=== PATIENT | male | born 1960 | race Caucasian/White ===

== ENCOUNTER → 2018-12-04 | Outpatient (CLI) | payer SELFPAY ==
--- NOTE | 2018-12-04 12:27 | Diagnostic Imaging Report ---
PROCEDURE: US Gallbladder. TECHNIQUE: Multiple real-time grayscale images were obtained over the right upper quadrant in various projections. INDICATION: Epigastric pain. FINDINGS: The liver is enlarged at 21 cm. There is diffuse increased echogenicity throughout the liver consistent with hepatic steatosis. No discrete liver mass is identified. Gallbladder is without stones or sludge. No wall thickening or biliary ductal dilatation is seen. The portal vein is patent and shows normal direction of flow. Pancreas is obscured by bowel gas. Right kidney is unremarkable. There is no ascites. IMPRESSION: 1. Hepatomegaly and hepatic steatosis. 2. No evidence of cholelithiasis or acute cholecystitis. Dictated by: Dictated on workstation # [id number]
== END ==
LOC: RAD 09:15 → EDUNIT# 09:30
PROVIDERS: ATTEND Surgery
DX: K76.0 Fatty (change of) liver, not elsewhere classified (principal)
CPT/HCPCS: 76705

== ENCOUNTER 2018-12-11 05:37 | Outpatient (CLI) | payer SELFPAY ==
[~2018-12-11] VITALS: Ht 182 cm; Wt 90.9 kg
== END 2018-12-11 14:53 | disposition home or self-care (01) ==
LOC: PREOP 05:37
PROVIDERS: ATTEND Surgery
DX: Z01.818 Encounter for other preprocedural examination (principal)

== ENCOUNTER 2018-12-18 07:46 | Day surgery (SDC) | payer SELFPAY ==
[~2018-12-18] VITALS: Ht 182 cm; Wt 90.9 kg
[2018-12-18] MEDS ORDERED: LACTATED RINGERS 1,000 ML IV STA (07:56)
[2018-12-18] MEDS ORDERED: LACTATED RINGERS 1,000 ML IV ONE (07:58)
[2018-12-18 08:00] VITALS: BP 150/93
[2018-12-18] MEDS ORDERED: MIDAZOLAM 5 MG/5 ML (VERSED) VIAL IV PRN (08:00)
[2018-12-18] MEDS ORDERED: fentaNYL INJECTION 100 MCG/2 ML AMP IVP ONE (08:00)
[2018-12-18] MEDS ORDERED: HURRICAINE EXT TUBE (BENZOCAINE) XX PRN (08:00)
--- NOTE | 2018-12-18 08:10 | Progress Note-Pre Operative ---
Pre-Operative Progress Note H&P Reviewed The H&P was reviewed, patient examined and no changes noted. Time Seen by Provider: 08:06 Date H&P Reviewed: Dec 18, 2018 Time H&P Reviewed: 08:07 Pre-Operative Diagnosis: Epigastric pain DAT BRENNER DO Dec 18, 2018 08:10 POS
[2018-12-18] MEDS ORDERED: proPOfol 200 MG/20 ML (DIPRIVAN) VIAL IV ONE (09:04)
[2018-12-18] MEDS ORDERED: MIDAZOLAM 2 MG/2 ML (VERSED) VIAL ONE (09:04)
[2018-12-18] MEDS ORDERED: HURRICAINE EXT TUBE (BENZOCAINE) ONE (09:13)
[2018-12-18 09:30] VITALS: BP 136/84
--- NOTE | 2018-12-18 09:32 | Progress Note-Post Operative ---
Post-Operative Progess Note Surgeon (s)/General Repairer (s) Surgeon DAT BRENNER DO General Repairer: none Pre-Operative Diagnosis Epigastric pain Post-Operative Diagnosis Gastritis Duodenitis Esophagitis Hiatal hernia Gastric Ulcer Procedure & Operative Findings Date of Procedure 12/18/18 Procedure Performed/Findings EGD with bx Anesthesia Type IV sedation by PLACING JUDGE Estimated Blood Loss Estimated blood loss (mL): scant Specimens/Packing Specimens Removed antral bx duodenal bx Body of stomach bx GE jxn bx Bx of ulcer DAT BRENNER DO Dec 18, 2018 09:32 POS
[2018-12-18] MEDS ORDERED: NF-ESOM40C PO (09:34)
[2018-12-18 09:35] VITALS: BP 129/82
--- NOTE | 2018-12-18 09:36 | Endoscopy Discharge Instruct ---
Endo Procedure/Findings Findings 1.: Gastric Ulcer, Gastritis 2.: Hiatal Hernia 3.: Other Findings (duodenitis, esophagitis) Discharge Instructions - Activity: You might feel a little sleepy until tomorrow. This is due to the medicine you received to relax you. Until tomorrow, you should: NOT drive a car, operate machinery or power tools. NOT drink any alcoholic beverages. NOT make any important decisions or sign importortant papers. Do not return to work until tomorrow, unless otherwise instructed. Resume prev ious activities tomorrow. Diet: Start by taking liquids. If you tolerate liquids, advance to solid food. make an appointment for one week 1.: EGD in 6-8 weeks Notify Physician - If you experience excessive bleeding, unusual abdominal pain, fever, or chest pain, contact your doctor immediately. DAT BRENNER DO Dec 18, 2018 09:36 POS
[2018-12-18 09:40] VITALS: BP 131/85
[2018-12-18 09:45] VITALS: BP 131/85
[2018-12-18 10:15] VITALS: BP 132/94
--- NOTE | 2018-12-18 13:09 | Anesthesia-General Post-Op ---
MAC Patient Condition Mental Status/LOC: Same as Preop Cardiovascular: Satisfactory Nausea/Vomiting: Absent Respiratory: Satisfactory Pain: Controlled Complications: Absent Post Op Complications Complications None Follow Up Care/Instructions Patient Instructions None needed. Anesthesiology Discharge Order Discharge Order Patient is doing well, no complaints, stable vital signs, no apparent adverse anesthesia problems. No complications reported per nursing. NEREYDA SHELLEY CRNA Dec 18, 2018 13:09 POS
--- NOTE | 2018-12-18 18:04 | OPERATIVE REPORT ---
DATE OF SERVICE: PREOPERATIVE DIAGNOSIS: Epigastric pain. POSTOPERATIVE DIAGNOSES: 1. Gastritis questionable watermelon belly. 2. Gastric ulcer. 3. Esophagitis. 4. Duodenitis. 5. Small hiatal hernia. PROCEDURE: EGD with biopsy. SURGEON: Rohit Camacho DO. WOOD CARVER: None. ANESTHESIA: IV sedation by PHONE CIRCUIT OPERATOR. SPECIMEN: One biopsy from the duodenum, one biopsy from the antrum, one biopsy from body of stomach, one biopsy from the GE junction and a biopsy of an ulcer in the body of the stomach just outside the antrum. BLOOD LOSS: Scant. FLUIDS: Per anesthesia. POSTOPERATIVE CONDITION: Stable. INDICATION FOR PROCEDURE: The patient is a 58-year-old male, who is having some epigastric pain and needed a workup. FINDINGS: The patient had some duodenitis, gastritis, esophagitis, small gastric ulcer and a small hiatal hernia. PROCEDURE NOTE: After informed consent was obtained, the patient was brought to the endoscopy suite and placed in the bed in left lateral decubitus position. He was administered IV sedation by the PHONE CIRCUIT OPERATOR, who then monitored his vital signs the entire time, heart rate, blood pressure and pulse ox. Inserted the scope down in through the mouth, down the esophagus into the stomach. Upon entry, noted some gastritis looked like watermelon belly and then pushed into the antrum, looked like what we saw some duodenitis. There is some redness elected to do a biopsy here, did a biopsy in the duodenum and then pulled back and did a biopsy of the antrum. Retroflexed the scope, saw a small hiatal hernia and did a biopsy of the body of stomach, pulled the scope up into the esophagus, looked like some mild creeping up of the Z line maybe some mild esophagitis, took a biopsy of the GE junction, pushed back and the suction out the air and noted what looked like a small ulcer in the body of stomach just outside the antrum, did a biopsy of this ulcer. Suctioned the air out of stomach and then pulled the scope up the esophagus and out the mouth. The patient tolerated the procedure, recovered in endoscopy suite. Job ID: [id number] DocumentID: [id number] Dictated Date: 12/18/2018 09:31:43 Electric Motor Assembler And Tester Date: 12/18/2018 15:24:07 Dictated By: ROHIT CAMACHO DO [facility]
--- OUTSIDE RECORDS SUMMARY | 2019-01-09 21:10 | XMS REPORT | Continuity of Care Document ---
Author Organization Unknown POS Address Unknown SP Phone Unavailable SP Allergies Active Description Code Type Severity POS Reaction Onset Reported/Identified POS to Patient Clinical Status POS Yes Penicillins [id number] Drug Aller gy SP HIVES/BREATHING 12/11/2018 SP SP Medications There is no data. Problems Date Dx Coded Attending Type Code POS Diagnosed By POS 12/06/2018 DAT BRENNER DO Ot K76.0 SP (CHANGE OF) LIVER, NOT ELSEWHERE C SP 12/11/2018 DAT BRENNER DO B Ot Z01.8 18 SP FOR OTHER PREPROCEDURAL EXAMIN SP 12/18/2018 DAT BRENNER DO Ot E78.5 SP UNSPECIFIED SP 12/18/2018 DAT BRENNER DO B Ot I10 SP (PRIMARY) HYPERTENSION SP 12/18/2018 DAT BRENNER DO B Ot K21.0 SPESOPHAGEAL REFLUX DISEASE WITH ES SP 12/18/2018 DAT BRENNER DO B Ot K25.9 SP ULCER, UNSP ACUTE OR CHRONIC, SP 12/18/2018 DAT BRENNER DO B Ot K29.7 0 SP UNSPECIFIED, WITHOUT BLEEDING SP 12/18/2018 DAT BRENNER DO B Ot K29.8 0 SP WITHOUT BLEEDING SP 12/18/2018 DAT BRENNER DO B Ot K31.8 9 SP DISEASES OF STOMACH AND DUODENUM SP 12/18/2018 DAT BRENNER DO B Ot K44.9 SP HERNIA WITHOUT OBSTRUCTION SP 12/18/2018 DAT BRENNER DO B Ot Z80.0 SP HISTORY OF MALIGNANT NEOPLASM OF SP 12/18/2018 DAT BRENNER DO B Ot Z80.4 2 SP HISTORY OF MALIGNANT NEOPLASM OF SP 12/18/2018 DAT BRENNER DO B Ot Z88.0 SP STATUS TO PENICILLIN SP 12/19/2018 DAT BRENNER DO B Ot Z01.8 18 SP FOR OTHER PREPROCEDURAL EXAMIN SP Procedures There is no data. Results There is no data. Encounters ACCT No. Visit Date/Time Discharge Status POS Pt. Type Provider Facility Loc./Un it POS Complaint POS [id number] 12/21/2018 11:49:00 23:59:59 SP [facility] Outpatient DAT BRENNER DO [facility] CARD EPIGASTRIC PAIN SP [id number] 12/18/2018 07:46:00 10:15:00 SP DIS Outpatient DAT BRENNER DO B [facility] ENDO EPIGASTRIC PAIN/FAMILY HX ES OPHAGEAL CA SP [id number] 12/11/2018 05:37:00 14:53:00 SP DIS Outpatient DAT BRENNER DO [facility] PREOP EGD SP [id number] 12/04/2018 09:15:00 23:59:59 SP [facility] Outpatient DAT BRENNER DO B [facility] RAD EPIGASTRIC PAIN SP
== END 2018-12-18 10:15 | disposition home or self-care (01) ==
LOC: ENDO 07:46
PROVIDERS: ATTEND Surgery
DX: K21.0 Gastro-esophageal reflux disease with esophagitis (principal); K29.70 Gastritis, unspecified, without bleeding; K29.80 Duodenitis without bleeding; K25.9 Gastric ulcer, unspecified as acute or chronic, without hemorrhage or perforation; K31.89 Other diseases of stomach and duodenum; K44.9 Diaphragmatic hernia without obstruction or gangrene; I10 Essential (primary) hypertension; E78.5 Hyperlipidemia, unspecified; Z88.0 Allergy status to penicillin; Z80.0 Family history of malignant neoplasm of digestive organs; Z80.42 Family history of malignant neoplasm of prostate
CPT/HCPCS: 88305

== ENCOUNTER → 2018-12-21 | Outpatient (CLI) | payer SELFPAY ==
[~2018-12-21] MED LIST: NF-ESOM40C PO
[2018-12-21] MEDS: CATHETER FLUSH 10 ML SYR IV PRN (12:16)
--- NOTE | 2018-12-21 16:09 | Diagnostic Imaging Report ---
EXAMINATION: Hepatobiliary scan with ejection fraction. INDICATION: Abdominal pain. TECHNIQUE: This study was performed following administration of 5.46 mCi of 99m technetium Choletec. Ensure was also utilized for the ejection fraction calculation. FINDINGS: There are no prior nuclear medicine studies available for comparison. The gallbladder ultrasound exam performed on 12/04/2018 failed to show any evidence for cholelithiasis or acute cholecystitis. On this exam, there is uptake of the radiotracer by the gallbladder before 30 minutes. This would weigh against the diagnosis of acute cholecystitis. There is also extension of the radiotracer into the small bowel, indicating that the common bile duct is nonobstructive. The ejection fraction is 45.6% (normal greater than 35%). IMPRESSION: 1. There is no evidence for acute cholecystitis or for obstruction of the common bile duct. 2. The ejection fraction is 45.6% and within normal limits. Dictated by: Dictated on workstation # [id number]
== END ==
LOC: EDUNIT# 11-28 10:13 → CARD 11:49
PROVIDERS: ATTEND Surgery
DX: R10.13 Epigastric pain (principal)
CPT/HCPCS: 78227

== ENCOUNTER 2021-03-22 13:21 | Emergency (ER) | payer SELFPAY ==
[2021-03-22 13:39] LABS: BASOPHILS # (AUTO) 0.1 10^3/uL (0.0-0.1); BASOPHILS % (AUTO) 1 % (0-10); EOSINOPHILS # (AUTO) 0.1 10^3/uL (0.0-0.3); EOSINOPHILS % (AUTO) 2 % (0-10); HEMATOCRIT 37 % (40-54); HEMOGLOBIN 12.3 g/dL (13.3-17.7); LYMPHOCYTES # (AUTO) 1.2 X 10^3 (1.0-4.0); LYMPHOCYTES % (AUTO) 17 % (12-44); MEAN CORPUSCULAR HEMOGLOBIN 32 pg (25-34); MEAN CORPUSCULAR HGB CONC 33 g/dL (32-36); MEAN CORPUSCULAR VOLUME 96 fL (80-99); MEAN PLATELET VOLUME 8.3 fL (9.0-12.2); MONOCYTES # (AUTO) 0.5 X 10^3 (0.0-1.0); MONOCYTES % (AUTO) 7 % (0-12); NEUTROPHILS # (AUTO) 5.5 X 10^3 (1.8-7.8); NEUTROPHILS % (AUTO) 74 % (42-75); PLATELET COUNT 387 10^3/uL (130-400); WHITE BLOOD COUNT 7.4 10^3/uL (4.3-11.0)
[2021-03-22] MEDS ORDERED: hydrALAZINE (APESOLINE) 20 MG/ML VIAL IV STA (13:43)
[2021-03-22] MEDS ORDERED: RT-ALBUTEROL HFA 8.5 GM INHALER IH STA (13:43)
--- NOTE | 2021-03-22 13:46 | ED General ---
General Chief Complaint: COVID19 Suspect/Confirmed Stated Complaint: CHEST TIGHTNESS/COUGH/HEADACHE Source of Information: Patient History of Present Illness Date Seen by Provider: Mar 22, 2021 Time Seen by Provider: 13:24 Initial Comments 60-year-old male presenting with complaints of a few weeks of chest tightness, cough, low-grade fever. She has been having some headache as well. He states he was seen at the urgent care and told that he had pneumonia. He was started on Vibramycin. He finished that about 10 days ago. He continues to have chest tightness and intermittent pain in his chest. He has also been having elevated blood pressure in the 170-190 systolic range. He has an appointment to see Dr. Dominguez this week in the clinic however he decided today that he should come to the emergency department rather than wait to be seen. He was not having any new symptoms or problem today. He has had continued cough and shortness of breath with some pain in chest and ribs for the last few weeks. Modifying Factors: worse with Movement (and deep breaths) Associated Systoms: Chest Pain (tightness), Cough; No Diaphoresis; Fever/Chills (low grade fever), Headaches; No Loss of Appetite, No Malaise, No Nausea/Vomiting, No Rash, No Seizure; Shortness of Air; No Syncope, No Weakness Allergies and Home Medications Allergies Coded Allergies: Penicillins (Verified Allergy, Severe, HIVES/BREATHING ISSUES, 12/11/18) Patient Home Medication List Home Medication List Reviewed: Yes Esomeprazole Magnesium (Nexium) 40 Mg Cap, 40 MG PO BID Prescribed by: DAT BRENNER on 12/18/18 0934 Review of Systems Review of Systems Constitutional: No chills; fever (low grade temperature) EENTM: no symptoms reported Respiratory: see HPI Cardiovascular: see HPI Gastrointestinal: No abdominal pain; nausea; No vomiting Genitourinary: No dysuria Musculoskeletal: no symptoms reported Skin: no symptoms reported Psychiatric/Neurological: Headache Past [id number] Hx Patient Social History Tobacco Use?: No Substance use?: No Alcohol Use?: Yes Alcohol type: Hard Liquor Alcohol Frequency: Daily Pt feels they are or have been: No Immunizations Up To Date PED Vaccines UTD: No First/Initial COVID19 Vaccinat: Not currently vaccinated Seasonal Allergies Seasonal Allergies: No Past Medical History Surgery/Hospitalization HX: HTN; High Cholesterol; Depression; Appendectomy; Hernia repair; Rhinoplasty Surgeries: Yes (HERNIA REPAIR, COLON RESECTION) Appendectomy Respiratory: No Cardiac: Yes Hypertension Neurological: No Sexually Transmitted Disease: No HIV/AIDS: No Genitourinary: No Gastrointestinal: Yes (COLON RESECTION FROM DIVERTICULOSIS) Gastroesophageal Reflux, Diverticulosis, Hiatal Hernia Musculoskeletal: No Endocrine: No HEENT: Yes (GLASSES) Loss of Vision: Denies Hearing Impairment: Denies Cancer: No Psychosocial: No Anxiety, Depression Integumentary: No Blood Disorders: No Adverse Reaction/Blood Tranf: No (N/A) Family Medical History Esophageal cancer Physical Exam Vital Signs Vital Signs - First Documented 03/22/21 13:29 Temp 36.5 Pulse 85 Resp 12 B/P (MAP) 167/83 (111) Pulse Ox 97 O2 Delivery Room Air Capillary Refill : Height, Weight, BMI Height: '" Weight: lbs. oz. kg; 27.44 BMI Method: General Appearance: No Apparent Distress, WD/WN HEENT: PERRL/EOMI, Pharynx Normal Neck: Full Range of Motion, Non Tender, Supple Respiratory: Chest Non Tender, Lungs Clear, Normal Breath Sounds, No Accessory Muscle Use, No Respiratory Distress Cardiovascular: Regular Rate, Rhythm, Normal Peripheral Pulses Gastrointestinal: Normal Bowel Sounds, No Pulsatile Mass, Non Tender, Soft Rectal: Deferred Extremity: Normal Capillary Refill, Normal Inspection, No Pedal Edema Neurologic/Psychiatric: Alert, Oriented x3, methods study analyst II-XII Norm as Tested Skin: Normal Color, Warm/Dry; No Ecchymosis Focused Exam Lactate Level 03/22/21 13:30: Lactic Acid Level 1.08 Lactic Acid Level Laboratory Tests Test 03/22/21 13:30 Lactic Acid Level 1.08 MMOL/L (0.50-2.00) Progress/Results/Core Measures Suspected Sepsis SIRS Temperature: Pulse: Respiratory Rate: Laboratory Tests 03/22/21 13:30: White Blood Count 7.4 Blood Pressure / Mean: 03/22/21 13:30: Lactic Acid Level 1.08 Laboratory Tests 03/22/21 13:30: Creatinine 0.98, INR Comment 0.9, Platelet Count 387, Total Bilirubin 0.3 Results/Orders Lab Results Laboratory Tests Test 03/22/21 13:30 Range/Units White Blood Count 7.4 4.3-11.0 10^3/uL Red Blood Count 3.88 L 4.30-5.52 10^6/uL Hemoglobin 12.3 L 13.3-17.7 g/dL Hematocrit 37 L 40-54 % Mean Corpuscular Volume 96 80-99 fL Mean Corpuscular Hemoglobin 32 25-34 pg Mean Corpuscular Hemoglobin Concent 33 32-36 g/dL Red Cell Distribution Width 13.0 10.0-14.5 % Platelet Count 387 130-400 10^3/uL Mean Platelet Volume 8.3 L 9.0-12.2 fL Immature Granulocyte % (Auto) 0 % Neutrophils (%) (Auto) 74 42-75 % Lymphocytes (%) (Auto) 17 12-44 % Monocytes (%) (Auto) 7 0-12 % Eosinophils (%) (Auto) 2 0-10 % Basophils (%) (Auto) 1 0-10 % Neutrophils # (Auto) 5.5 1.8-7.8 X 10^3 Lymphocytes # (Auto) 1.2 1.0-4.0 X 10^3 Monocytes # (Auto) 0.5 0.0-1.0 X 10^3 Eosinophils # (Auto) 0.1 0.0-0.3 10^3/uL Basophils # (Auto) 0.1 0.0-0.1 10^3/uL Immature Granulocyte # (Auto) 0.0 0.0-0.1 10^3/uL Prothrombin Time 12.6 12.2-14.7 SEC INR Comment 0.9 0.8-1.4 Activated Partial Thromboplast Time 24 24-35 SEC Sodium Level 139 135-145 MMOL/L Potassium Level 3.9 3.6-5.0 MMOL/L Chloride Level 102 98-107 MMOL/L Carbon Dioxide Level 26 21-32 MMOL/L Anion Gap 11 5-14 MMOL/L Blood Urea Nitrogen 17 7-18 MG/DL Creatinine 0.98 0.60-1.30 MG/DL Estimat Glomerular Filtration Rate 87 BUN/Creatinine Ratio 17 Glucose Level 127 H 70-105 MG/DL Lactic Acid Level 1.08 0.50-2.00 MMOL/L Calcium Level 9.3 8.5-10.1 MG/DL Corrected Calcium 9.0 8.5-10.1 MG/DL Magnesium Level 1.8 1.6-2.4 MG/DL Total Bilirubin 0.3 0.1-1.0 MG/DL Aspartate Amino Transf (AST/SGOT) 36 H 5-34 U/L Alanine Aminotransferase (ALT/SGPT) 32 0-55 U/L Alkaline Phosphatase 115 40-136 U/L Myoglobin 32.5 10.0-92.0 NG/ML Troponin I < 0.30 <0.30 NG/ML Pro-B-Type Natriuretic Peptide 187.2 H <75.0 PG/ML Total Protein 7.0 6.4-8.2 GM/DL Albumin 4.4 3.2-4.5 GM/DL Lipase 26 8-78 U/L Influenza Type A Antigen NEGATIVE NEGATIVE Influenza Type B Antigen NEGATIVE NEGATIVE My Orders Orders - AMBROSE BARGER MD Cbc With Automated Diff (03/22/21 13:28) Magnesium (03/22/21 13:28) Ekg Tracing (03/22/21 13:28) Comprehensive Metabolic Panel (03/22/21 13:28) Myoglobin Serum (03/22/21 13:28) Protime With Inr (03/22/21 13:28) Partial Thromboplastin Time (03/22/21 13:28) O2 (03/22/21 13:28) Monitor-Rhythm Ecg Trace Only (03/22/21 13:28) Ed Iv/Invasive Line Start (03/22/21 13:28) Lipase (03/22/21 13:28) Troponin I Fs (03/22/21 13:28) Probnp Fs (03/22/21 13:28) Blood Culture (03/22/21 13:41) Covid 19 Inhouse Test (03/22/21 13:41) Influenza A & B Antigens (03/22/21 13:41) Chest 1 View Ap/Pa Only (03/22/21 13:41) Lactic Acid Analyzer (03/22/21 13:41) Isolation Central Supply Req (03/22/21 13:41) Hydralazine Injection (Apresoline Inject (03/22/21 13:43) Albuterol Inhaler (Albuterol) (03/22/21 13:43) Vital Signs/I&O 03/22/21 03/22/21 03/22/21 13:29 13:29 15:11 Temp 36.5 36.5 Pulse 85 95 Resp 12 22 B/P (MAP) 167/83 (111) 158/82 Pulse Ox 97 95 O2 Delivery Room Air Room Air Room Air Capillary Refill : Progress Note #1: Progress Note Obtain labs as well as chest x-ray, electrocardiogram, blood cultures, lactic acid. Give albuterol inhaler and see if that helps with the tightness in his chest. Progress Note #2: Progress Note His labs appear stable without acute significant abnormality to account for his chest tightness and cough. He had negative influenza swab. His electrocardiogram did not show an acute ST elevation SC. He had elevated blood pressure that was treated with hydralazine here in the ED. His cardiac enzymes were negative for acute coronary syndrome or cardiac ischemia. His chest x-ray did not demonstrate any acute infiltrate. Will have patient continue to use his inhaler and spacer to help with chest tightness. Follow-up with primary care about his elevated blood pressure as they may need to tweak or adjust his doses of medications. There is no indication of pneumonia or sepsis to indicate further antibiotics are necessary at this point ECG Initial ECG Impression Date: Mar 22, 2021 Initial ECG Impression Time: 13:27 Initial ECG Rate: 83 Initial ECG Rhythm: Normal Sinus Initial ECG Comparisson: No Previous ECG Available Comment Normal sinus rhythm with a heart rate of 83 bpm. ME interval [address] elevation. QT interval 413 ms with a QTc interval 486 ms. There is no prior tracing available for comparison. Diagnostic Imaging Diagonstic Imaging: Xray Plain Films/CT/US/NM/MRI: chest Comments [facility]. [place], [place] NAME: NAZARIO LUGO [facility] REC#: [id number] PT STATUS: REG ER : 1960 PHYSICIAN: AMBROSE BARGER MD ADMIT DATE: 03/22/21/ER FS Signed Date of Exam:03/22/21 CHEST 1 VIEW AP/PA ONLY CHEST 1 VIEW AP/PA ONLY Indication: Cough and congestion Comparison: None available. Findings: Left basilar linear opacities are most indicative of atelectasis. No consolidation within the visualized lungs. Please note that the posterior lower lobes are poorly evaluated by portable radiography. No pleural effusion or pneumothorax. Normal cardiomediastinal silhouette. Impression: 1. No acute cardiopulmonary process by portable radiography. Dictated by: Dictated on workstation # [id number] Dict: 03/22/21 1404 Trans: 03/22/21 1405 [facility] [id number] Interpreted by: ISABELL MICHAEL MD Electronically signed by: ISABELL MICHAEL MD 03/22/21 1405 Departure Impression Primary Impression: Sensation of chest tightness Additional Impression: Elevated blood pressure reading with diagnosis of hypertension Disposition: HOME, SELF-CARE Condition: Stable Departure-Patient Inst. Decision time for Depature: 15:06 Referrals: FRANCISCO J DOMINGUEZ MD (PCP/Family) Primary Care Physician Patient Instructions: Chest Pain, Adult ED, DASH Diet, Heart Healthy Diet, High Blood Pressure ED, How to Use a Metered Dose Inhaler ED, How to Use a Spacer Add. Discharge Instructions: There is no sign of pneumonia on your chest xray and your labs look ok from a heart stand point. Try using the albuterol inhaler with spacer to help with chest tightness. Follow-up with clinic about your elevated blood pressure to see if they need to adjust your medications and get better control of your blood pressure. Your Covid test will take another 1 to 2 days to get back and they will call once I have those results. Consider using Mucinex gluc-yid-onrepca to help with any cough and congestion. You could also consider using some Coricidin so that it does not affect your blood pressure but could still help with the cough and congestion. All discharge instructions reviewed with patient and/or family. Voiced understanding. AMBROSE BARGER MD Mar 22, 2021 13:46
[2021-03-22 13:49] LABS: INR 0.9 (0.8-1.4); PROTHROMBIN TIME PATIENT 12.6 SEC (12.2-14.7)
[2021-03-22 13:54] LABS: CALCIUM 9.3 MG/DL (8.5-10.1); CREATININE SERUM 0.98 MG/DL (0.60-1.30); MAGNESIUM 1.8 MG/DL (1.6-2.4); POTASSIUM 3.9 MMOL/L (3.6-5.0)
[2021-03-22 13:55] LABS: ALBUMIN 4.4 GM/DL (3.2-4.5); BILIRUBIN,TOTAL 0.3 MG/DL (0.1-1.0)
--- NOTE | 2021-03-22 14:06 | Diagnostic Imaging Report ---
CHEST 1 VIEW AP/PA ONLY Indication: Cough and congestion Comparison: None available. Findings: Left basilar linear opacities are most indicative of atelectasis. No consolidation within the visualized lungs. Please note that the posterior lower lobes are poorly evaluated by portable radiography. No pleural effusion or pneumothorax. Normal cardiomediastinal silhouette. Impression: 1. No acute cardiopulmonary process by portable radiography. Dictated by: Dictated on workstation # [id number]
[2021-03-22 15:11] VITALS: BP 158/82
== END 2021-03-22 15:22 | disposition home or self-care (01) ==
LOC: EDUNIT# 13:21 → ER FS 13:23
DX: U07.1 COVID-19 (principal); I10 Essential (primary) hypertension; K21.9 Gastro-esophageal reflux disease without esophagitis; Z79.899 Other long term (current) drug therapy
CPT/HCPCS: 36415; 71045; 80053; 83605; 83690; 83735; 83874; 83880; 84484; 85025; 85610; 85730; 87040; 87636; 87804; 93005; 93041